=== PATIENT | female | born 1970 | race Caucasian/White ===

== ENCOUNTER 2017-03-18 12:00 | Emergency (ER) | payer MEDICAID ==
[~2017-03-18] VITALS: Wt 68.2 kg
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
[2017-03-18] MEDS ORDERED: ACETAMINOPHEN 325 MG TAB PO ONE (13:30)
--- NOTE | 2017-03-18 14:18 | RADRPT ---
PROCEDURE: XR RIGHT ANKLE. CLINICAL INDICATION: Pain TECHNIQUE: 3 views of the right ankle were performed. COMPARISON: None. FINDINGS: There is no evidence of acute fracture or dislocation of the visualized osseous structures of the ri ght ankle. Bony mineralization and alignment are unremarkable. The ankle mortise is intact. Joint sp aces are preserved. There is soft tissue swelling. There is a small plantar calcaneal spur. IMPRESSION: 1. Soft tissue swelling, without evidence of acute fracture dislocation of the right ankle. RPTAT: AAPP Physician Dionte Date Time Electronically viewed and signed by Physician Dionte on 03/18/2017 14:18 MELYSSA/
--- NOTE | 2017-03-18 14:18 | RADRPT ---
PROCEDURE: XR LEFT ELBOW. CLINICAL INDICATION: Swelling and pain TECHNIQUE: AP, lateral and oblique views of the right elbow performed. COMPARISON: None. FINDINGS: There is no evidence of acute fracture dislocation of the left elbow. Bone mineralization and alignm ent are unremarkable. No gross abnormal osseous lesion. Joint spaces are preserved. No gross abnorma l elevation of the anterior fat pad. No evidence of posterior fat pad. Soft tissues are within limit s. IMPRESSION: 1. Unremarkable left elbow. RPTAT: AAPP Physician Dionte Date Time Electronically viewed and signed by Stella Webster Physician on 03/18/2017 14:18 MELYSSA/
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
[2017-03-18] MEDS ORDERED: ACET500C5 PO (14:45)
[2017-03-18] MEDS ORDERED: IBUP-1542 PO (14:45)
== END 2017-03-18 15:09 | disposition home or self-care (01) ==
LOC: FTE 12:26
DX: M25.521 Pain in right elbow (principal); R10.2 Pelvic and perineal pain; M25.571 Pain in right ankle and joints of right foot
CPT/HCPCS: 70450; 72170; 73080; 73610; Z7502